=== PATIENT | male | born 1945 | race Caucasian/White ===

== ENCOUNTER 2022-04-10 05:33 | Outpatient (CLI) | payer OTHER ==
[~2022-04-10] VITALS: Ht 170.2 cm; Wt 70.3 kg
[2022-04-10] MEDS ORDERED: CYCL10TA25 PO (11:15)
[2022-04-10] MEDS ORDERED: TRZ50T PO (11:15)
[2022-04-10] MEDS ORDERED: PREG100C55 PO (11:15)
[2022-04-10] MEDS ORDERED: ALPR1TAB7 PO (11:15)
[2022-04-10] MEDS ORDERED: TMSL.4C PO (11:15)
[2022-04-10] MEDS ORDERED: DOCU100T2 PO (11:15)
== END 2022-04-10 11:27 ==
LOC: PREOP 05:33
PROVIDERS: ATTEND Surgery
DX: Z01.818 Encounter for other preprocedural examination (principal); K59.00 Constipation, unspecified; Z86.010 Personal history of colon polyps

== ENCOUNTER 2022-04-17 11:44 | Day surgery (SDC) | payer OTHER ==
[~2022-04-17] VITALS: Ht 170.2 cm; Wt 70.3 kg
[~2022-04-17 11:44] MED LIST: ALPR1TAB7 PO; CYCL10TA25 PO; DOCU100T2 PO; PREG100C55 PO; TMSL.4C PO; TRZ50T PO
[2022-04-17] MEDS ORDERED: LACTATED RINGERS 1,000 ML IV ONE (12:52)
[2022-04-17] MEDS ORDERED: LACTATED RINGERS 1,000 ML IV STA (13:04)
[2022-04-17] MEDS ORDERED: LACTATED RINGERS 1,000 ML IV PRN (13:15)
[2022-04-17 13:17] VITALS: BP 136/87
[2022-04-17] MEDS ORDERED: PROPOFOL INJECTION 50 ML IV ONE (14:24)
--- NOTE | 2022-04-17 15:19 | Discharge Inst-Simple/Standard ---
Discharge Inst-Standard Patient Instructions/Follow Up Plan of Care/Instructions/FU: 2 weeks Emmy Activity as Tolerated: Yes Discharge Diet: Regular Diet (high fiber) NIDHI HUNTER DO Apr 17, 2022 15:19
[2022-04-17 15:21] VITALS: BP 126/85
[2022-04-17 15:25] VITALS: BP 127/85
[2022-04-17 15:50] VITALS: BP 130/84
[2022-04-17 16:22] VITALS: BP 130/84
--- NOTE | 2022-04-17 16:23 | Anesthesia-General Post-Op ---
MAC Patient Condition Mental Status/LOC: Same as Preop Cardiovascular: Satisfactory Nausea/Vomiting: Absent Respiratory: Satisfactory Pain: Controlled Complications: Absent Post Op Complications Complications None Follow Up Care/Instructions Patient Instructions None needed. Anesthesiology Discharge Order Discharge Order Patient is doing well, no complaints, stable vital signs, no apparent adverse anesthesia problems. No complications reported per nursing. LEXI SOTO CRNA Apr 17, 2022 16:22
--- NOTE | 2022-04-17 19:26 | OPERATIVE REPORT ---
DATE OF SERVICE: 04/17/2022 PREOPERATIVE DIAGNOSES: Change in bowel habits, constipation. POSTOPERATIVE DIAGNOSES: Diverticulosis, colon polyps. PROCEDURE: Colonoscopy with hot biopsy polypectomy x6. SURGEON: Dr. Booth. ANESTHESIA: Per PULMONARY FUNCTION TECHNOLOGIST. ESTIMATED BLOOD LOSS: None. COMPLICATIONS: None. INDICATIONS: The patient is a 77-year-old male with change in bowel habits and constipation. He understands the risks and benefits of procedure and wishes to proceed. Consent was signed in chart. DESCRIPTION OF PROCEDURE: The patient was taken to the endoscopy suite, placed in left lateral recumbent position. Timeout was performed. Digital rectal exam was performed. No palpable polyps, masses or ulcerations. Some slight internal hemorrhoids. Scope was inserted in the rectum and advanced all the way to cecum. The patient will be repositioned a couple times due to a tortuous colon. Once in the cecum, Prep was adequate. Scope was slowly retracted back. No polyps, masses or ulcerations in the cecum. Ascending colon had two polyps, which they are small. Hot biopsy polypectomies were performed. Scope was then continuously retracted back to the transverse colon where 2 small polyps were present, which hot biopsy polypectomy was performed. Scope was then continuously retracted back. In the descending, no polyps, masses or ulcerations. In the sigmoid colon, two small polyps were found, which hot biopsy polypectomy was performed. The patient had pretty significant diverticula present. Scope was then continuously retracted back into the rectum where it was also retroflexed noting no other pathology except for the internal hemorrhoids. The scope was returned to its normal position and slowly withdrawn until completely removed. The patient tolerated the procedure well with no complications, taken to recovery room in stable condition. RECOMMENDATIONS: The patient will need repeat colonoscopy on an as needed basis. He will follow up in the office in two weeks to discuss pathology results. We recommend a high fiber diet due to the diverticulosis and also due to constipation. I think 25-35 grams of fiber per day would be beneficial. Job ID: [id number] DocumentID: [id number] Dictated Date: 04/17/2022 15:25:33 Child Center Assistant Date: 04/17/2022 19:24:00 Dictated By: NIDHI BOOTH DO
== END 2022-04-17 16:22 | disposition home or self-care (01) ==
LOC: ENDO 11:44
PROVIDERS: ATTEND Surgery
DX: D12.2 Benign neoplasm of ascending colon (principal); D12.3 Benign neoplasm of transverse colon; K63.5 Polyp of colon; K59.00 Constipation, unspecified; K57.30 Diverticulosis of large intestine without perforation or abscess without bleeding; Z86.010 Personal history of colon polyps
CPT/HCPCS: 88305